=== PATIENT | male | born 1980 | race Caucasian/White ===

== ENCOUNTER 2018-03-29 19:59 | Emergency (ER) | payer OTHER ==
[~2018-03-29] VITALS: Ht 180.3 cm; Wt 72.6 kg
[2018-03-29] MEDS ORDERED: AUGMENTIN 500500 MG PO (20:10)
[2018-03-29] MEDS ORDERED: ZOFRAN4 MG PO (20:10)
[2018-03-29] MEDS ORDERED: Motrin,Rufen800 MG PO (20:26)
== END 2018-03-29 20:15 | disposition home or self-care (01) ==
LOC: ED 19:59
DX: S01.551A Open bite of lip, initial encounter (principal); R03.0 Elevated blood-pressure reading, without diagnosis of hypertension; W54.0XXA Bitten by dog, initial encounter; Y93.89 Activity, other specified; Y92.89 Other specified places as the place of occurrence of the external cause; Y99.8 Other external cause status

== ENCOUNTER 2018-06-03 17:14 | Emergency (ER) | payer OTHER ==
[~2018-06-03] VITALS: Ht 180.3 cm; Wt 72.6 kg
[~2018-06-03 17:14] MED LIST: AUGMENTIN 500500 MG PO; Motrin,Rufen800 MG PO; ZOFRAN4 MG PO
[2018-06-03] MEDS ORDERED: AUGMENTIN 875875 MG PO (19:02)
== END 2018-06-03 19:04 | disposition home or self-care (01) ==
LOC: ED 17:14
DX: S61.012A Laceration without foreign body of left thumb without damage to nail, initial encounter (principal); W26.8XXA Contact with other sharp object(s), not elsewhere classified, initial encounter; Y93.89 Activity, other specified; Y92.89 Other specified places as the place of occurrence of the external cause; Y99.8 Other external cause status